=== PATIENT | male | born 1985 | race Native Hawaiian/Other Pacific Islander ===

== ENCOUNTER 2017-02-16 19:40 | Observation (INO) | payer OTHER ==
[~2017-02-16] VITALS: Ht 180.3 cm; Wt 80.7 kg
[2017-02-16 19:54] VITALS: BP 135/80; TEMP 98.5
[2017-02-16 20:38] LABS: PLATELET COUNT 187 K/uL (142-355)
[2017-02-16 20:51] LABS: SODIUM 138 mmol/L (136-145)
[2017-02-17 04:00] VITALS: BP 132/66; TEMP 97
[2017-02-17 05:30] VITALS: BP 124/88; TEMP 98.5; Ht 180.3 cm; Wt 80.7 kg
[2017-02-17 08:27] VITALS: BP 122/69; TEMP 97.3
[2017-02-17 12:00] VITALS: BP 130/70; TEMP 98
[2017-02-17 16:00] VITALS: BP 118/71; TEMP 98.2
[2017-02-17 20:00] VITALS: BP 126/77; TEMP 97.8
[2017-02-18] VITALS: BP 133/76; TEMP 97.8
[2017-02-18 04:00] VITALS: BP 116/62; TEMP 97.4
[2017-02-18 06:00] LABS: PLATELET COUNT 146 K/uL (142-355)
[2017-02-18 06:40] LABS: POTASSIUM 3.5 mmol/L (3.6-5.2); SODIUM 140 mmol/L (136-145)
[2017-02-18 08:00] VITALS: BP 118/73; TEMP 97.6
[2017-02-18 12:00] VITALS: BP 128/69; TEMP 98
--- NOTE | 2017-02-18 13:48 | NUR ---
IV SITE D/C'D WITH TIP INTACT AND SITE CARE DONE.
--- NOTE | 2017-02-18 14:10 | NUR ---
D/C INSTRUCTIONS GIVEN TO PT AND HE VERBALIZES UNDERSTANDING. PT GIVEN LIST OF LOCAL PROVIDERS FOR PT TO FOLLOW UP WITH
--- NOTE | 2017-02-18 14:15 | NUR ---
PT AMBULATORY OUT WITH FAMILY AT SIDE AND NAD.
== END 2017-02-18 14:20 | disposition home or self-care (01) ==
LOC: ED 19:40 → MED/SURG 21:30
PROVIDERS: ADMIT Emergency Medicine
DX: J18.8 Other pneumonia, unspecified organism (principal)
CPT/HCPCS: 36415; 80048; 80053; 80307; 80320; 81000; 83735; 85027; 87040; 93005; 94640; 94664; 94760; 96361; 96365; 96366; 96367; 99220; 99284; G0378; G0479; J0456; J0696

== ENCOUNTER 2017-02-24 18:36 | Emergency (ER) | payer OTHER ==
[~2017-02-24] VITALS: Ht 180.3 cm; Wt 79.4 kg
[2017-02-24 20:06] LABS: PLATELET COUNT 194 K/uL (142-355)
[2017-02-24 20:12] LABS: POTASSIUM 3.8 mmol/L (3.6-5.2); SODIUM 136 mmol/L (136-145)
[2017-02-24 20:35] VITALS: BP 146/80; TEMP 98.1
== END 2017-02-24 20:40 | disposition home or self-care (01) ==
LOC: ED 18:36
PROVIDERS: Family Medicine
DX: R05 Cough (principal)
CPT/HCPCS: 36415; 80053; 85027; 99282